=== PATIENT | male | born 1960 | race Caucasian/White ===

== ENCOUNTER 2019-01-21 10:00 | Emergency (ER) | payer BC ==
[2019-01-21] MEDS ORDERED: Adacel (T-DAP) 0.5 ML SYRINGE ONE (10:03)
[2019-01-21] MEDS ORDERED: Lidocaine 1% w/Epinephrine 1:100K 20 ML VIAL ONE (10:20)
--- NOTE | 2019-01-21 10:51 | RAD ---
FRONTAL AND LATERAL IMAGING OF LEFT TIBIA AND FIBULA: Date: 01/21/19 COMPARISON: None. HISTORY: Injury, trauma, bleeding. FINDINGS: No displaced fracture or evidence of dislocation seen. No radiopaque foreign body seen. There is soft tissue irregularity suggesting laceration involving the anterior and left lateral aspect of the left leg. IMPRESSION: Findings suggesting prominent laceration with no associated fracture/dislocation or radiopaque foreig n body. POS: OFF
[2019-01-21] MEDS ORDERED: HYDROcodone/Acetaminophen 10/325 mg Tablet ONE (10:52)
[2019-01-21] MEDS ORDERED: Triple Antibiotic Oint 1 GM Packet ONE ×2 (12:49→12:51)
== END 2019-01-21 13:08 | disposition home or self-care (01) ==
LOC: ERS 10:00
DX: S81.812A Laceration without foreign body, left lower leg, initial encounter (principal); E78.5 Hyperlipidemia, unspecified; I10 Essential (primary) hypertension; Z79.899 Other long term (current) drug therapy; W20.8XXA Other cause of strike by thrown, projected or falling object, initial encounter
CPT/HCPCS: 12035; 90471; 90715; J2001